=== PATIENT | female | born 1995 | race Caucasian/White ===

== ENCOUNTER 2019-01-30 15:09 | Observation (INO) | payer BC ==
[~2019-01-30] VITALS: Ht 160 cm; Wt 113.6 kg
[2019-01-30 15:11] VITALS: TEMP 98.3
[2019-01-30 19:25] VITALS: BP 116/75; PULSE 101
== END 2019-01-30 18:45 | disposition home or self-care (01) ==
LOC: COL.ER 15:09 → SURG 17:29
PROVIDERS: ADMIT Orthopaedic Surgery
DX: M79.605 Pain in left leg (principal); Z88.5 Allergy status to narcotic agent
CPT/HCPCS: J1170; J1885; J2405; J2704; J3010; J7040; Q4041